=== PATIENT | male | born 1955 | race Two or more races ===

== ENCOUNTER 2016-05-23 18:04 | Inpatient (IN) | payer MEDICAID ==
[~2016-05-23] VITALS: Ht 170.2 cm; Wt 84.0 kg
[2016-05-23 18:50] LABS: Basophils # (auto) 0 uL; Basophils % (auto) 0.1 % (0.0-2.0); DEFINITIVE VIEW TRANSMISSION; Eosinophils # (auto) 0 uL; Eosinophils % (auto) 0.2 % (0.0-7.0); Hematocrit 35.3 % (41.0-53.0); Lymphocytes # (auto) 4.9 uL; Lymphocytes % (auto) 28.9 % (10.0-50.0); Mean Corpuscular Hemoglobin 20.8 pg (28.0-32.0); Mean Corpuscular Hgb Conc. 31.1 g/dL (32.0-36.0); Mean Corpuscular Volume 66.7 fL (80.0-100.0); Mean Platelet Volume 6.9 fL (7.4-10.4); Monocytes # (auto) 1.4 uL; Monocytes % (auto) 8.1 % (0.0-12.0); Neutrophils # (auto) 10.7 uL; Neutrophils % (auto) 62.7 % (37.0-80.0); Platelet Count (auto) 369 10^3/uL (140-450); Red Cell Distribution Width 19.5 % (11.6-16.0); White Blood Cell 17.1 10^3/uL (4.4-10.8)
[2016-05-23 19:13] LABS: Albumin 3.5 g/dL (3.4-5.0); BUN/Creatinine Ratio 17.5; Calcium 9.1 mg/dL (8.5-10.1); Magnesium 1.8 mg/dL (1.6-2.6); Potassium 4.1 mmol/L (3.5-5.1); Total Protein 8.1 g/dL (6.4-8.2)
[2016-05-23 19:55] LABS: Anisocytosis Slight; Giant Platelets Few; Hypochromia Moderate; Microcytosis Marked; Platelet Estimate Adequate
[2016-05-23] MEDS ORDERED: MORPHINE SULFATE 4 MG/ML SYRG IV ONE (20:45)
[2016-05-23] MEDS ORDERED: ONDANSETRON HCL 4 MG/2 ML VIAL IV ONE (20:45)
[2016-05-24] MEDS ORDERED: MORPHINE SULFATE 4 MG/ML SYRG IM ONE (01:45)
[2016-05-24] MEDS ORDERED: ONDANSETRON HCL 4 MG/2 ML VIAL IM ONE (01:45)
[2016-05-24] MEDS ORDERED: cefTRIAXone 1GM/50ML D5W 50 ML IV ONE (01:45)
[2016-05-24 02:02] LABS: Urine Bilirubin Negative (Negative); Urine Color Red (Yellow); Urine Glucose Normal (Normal); Urine Ketone Negative (Negative); Urine RBC 258 /hpf (0 - 3); Urine Urobilinogen Normal (Negative); Urine WBC Clumps PRESENT /hpf (None Seen)
[2016-05-24 02:11] LABS: Urine Blood 3+ /uL (Negative); Urine Nitrite POSITIVE (Negative)
[2016-05-24] MEDS ORDERED: ACETAMINOPHEN 325 MG TAB PO ONE (02:30)
[2016-05-24] MEDS: SODIUM CHLORIDE 0.9% 1,000 ML IV SCH ×2 (04:51→22:15)
[2016-05-24] MEDS ORDERED: TAMSULOSIN HYDROCHLORIDE 0.4 MG CAP PO ONE (05:00)
[2016-05-24] MEDS ORDERED: ONDANSETRON HCL 4 MG/2 ML VIAL IV PRN (05:00)
[2016-05-24] MEDS ORDERED: ACETAMINOPHEN 325 MG TAB PO PRN (05:00)
[2016-05-24 09:34] VITALS: BP 108/66
[2016-05-24] MEDS: FERROUS SULFATE 325 MG TAB PO SCH (10:01)
[2016-05-24] MEDS: FAMOTIDINE 20 MG TAB PO SCH ×2 (10:01→22:15)
[2016-05-24] MEDS: ENOXAPARIN SOD 40 MG/0.4 ML SYRINGE SC SCH (10:02)
[2016-05-24] MEDS: HYDROcodone-ACET 5/325MG TAB PO PRN ×3 (10:02→22:16)
[2016-05-24] MEDS ORDERED: PIRO-23 PO (11:05)
[2016-05-24] MEDS ORDERED: TAMS0.4C36 PO (11:05)
[2016-05-24 13:00] VITALS: BP 93/54
[2016-05-24 16:54] VITALS: BP 92/49
[2016-05-24] MEDS: TAMSULOSIN HYDROCHLORIDE 0.4 MG CAP PO SCH (18:01)
[2016-05-24 21:45] VITALS: BP 100/62
[2016-05-25] MEDS: cefTRIAXone 1GM/50ML D5W 50 ML IV SCH (01:44)
[2016-05-25 04:42] VITALS: BP 97/57
[2016-05-25] MEDS: HYDROcodone-ACET 5/325MG TAB PO PRN ×4 (06:26→21:54)
[2016-05-25 07:03] LABS: Basophils # (auto) 0 uL; Basophils % (auto) 0.4 % (0.0-2.0); DEFINITIVE VIEW TRANSMISSION; Eosinophils # (auto) 0.4 uL; Eosinophils % (auto) 4.7 % (0.0-7.0); Hemoglobin 10.6 g/dL (13.5-17.5); Lymphocytes # (auto) 4.1 uL; Lymphocytes % (auto) 51.2 % (10.0-50.0); Mean Corpuscular Hemoglobin 20.4 pg (28.0-32.0); Mean Corpuscular Hgb Conc. 30.3 g/dL (32.0-36.0); Mean Corpuscular Volume 67.4 fL (80.0-100.0); Mean Platelet Volume 7.8 fL (7.4-10.4); Monocytes # (auto) 0.9 uL; Monocytes % (auto) 10.7 % (0.0-12.0); Neutrophils # (auto) 2.7 uL; Platelet Count (auto) 344 10^3/uL (140-450); Red Cell Distribution Width 19.5 % (11.6-16.0)
[2016-05-25 07:20] LABS: Albumin 3.2 g/dL (3.4-5.0); BUN/Creatinine Ratio 20.8; Calcium 8.2 mg/dL (8.5-10.1); Potassium 3.9 mmol/L (3.5-5.1)
[2016-05-25 07:23] LABS: Bilirubin, Total 0.3 mg/dL (0.2-1.0); Total Protein 7.7 g/dL (6.4-8.2)
[2016-05-25 07:41] LABS: Anisocytosis Slight; Platelet Estimate Adequate
[2016-05-25 07:42] LABS: Hypochromia Moderate; Microcytosis Marked
[2016-05-25 09:00] VITALS: BP 139/64
[2016-05-25] MEDS: ENOXAPARIN SOD 40 MG/0.4 ML SYRINGE SC SCH (10:41)
[2016-05-25] MEDS: FERROUS SULFATE 325 MG TAB PO SCH (10:41)
[2016-05-25] MEDS: FAMOTIDINE 20 MG TAB PO SCH ×2 (10:41→21:49)
[2016-05-25] MEDS: AMPICILLIN SOD 2GM INJ 2 GM in SODIUM CHL 0.9% 100 ML IV SCH ×3 (12:31→23:33)
[2016-05-25 13:00] VITALS: BP 104/72
[2016-05-25 16:00] VITALS: BP 106/65
[2016-05-25] MEDS: TAMSULOSIN HYDROCHLORIDE 0.4 MG CAP PO SCH (17:49)
[2016-05-25] MEDS: SODIUM CHLORIDE 0.9% 1,000 ML IV SCH (17:50)
[2016-05-25 22:00] VITALS: BP 112/74
[2016-05-26] MEDS: cefTRIAXone 1GM/50ML D5W 50 ML IV SCH (02:01)
[2016-05-26] MEDS: HYDROcodone-ACET 5/325MG TAB PO PRN ×3 (02:32→20:18)
[2016-05-26 05:47] VITALS: BP 113/75
[2016-05-26] MEDS: AMPICILLIN SOD 2GM INJ 2 GM in SODIUM CHL 0.9% 100 ML IV SCH (05:50)
[2016-05-26] MEDS: SODIUM CHLORIDE 0.9% 1,000 ML IV SCH ×2 (05:50→14:29)
[2016-05-26 06:53] LABS: Basophils # (auto) 0 uL; Basophils % (auto) 0.6 % (0.0-2.0); DEFINITIVE VIEW TRANSMISSION; Eosinophils # (auto) 0.4 uL; Eosinophils % (auto) 6.9 % (0.0-7.0); Hematocrit 32.2 % (41.0-53.0); Hemoglobin 9.8 g/dL (13.5-17.5); Mean Corpuscular Hemoglobin 20.6 pg (28.0-32.0); Mean Corpuscular Hgb Conc. 30.4 g/dL (32.0-36.0); Mean Corpuscular Volume 67.8 fL (80.0-100.0); Mean Platelet Volume 7.3 fL (7.4-10.4); Monocytes # (auto) 0.6 uL; Monocytes % (auto) 9.2 % (0.0-12.0); Neutrophils # (auto) 1.3 uL; Neutrophils % (auto) 20.7 % (37.0-80.0); Platelet Count (auto) 346 10^3/uL (140-450); Red Cell Distribution Width 19.6 % (11.6-16.0); White Blood Cell 6.5 10^3/uL (4.4-10.8)
[2016-05-26 07:12] LABS: Albumin 2.7 g/dL (3.4-5.0); BUN/Creatinine Ratio 17.4; Bilirubin, Total 0.2 mg/dL (0.2-1.0); Calcium 8.1 mg/dL (8.5-10.1); Total Protein 6.6 g/dL (6.4-8.2)
[2016-05-26 07:26] LABS: Lymphocytes % (auto) 62.6 % (10.0-50.0)
[2016-05-26] MEDS: ENOXAPARIN SOD 40 MG/0.4 ML SYRINGE SC SCH (09:03)
[2016-05-26] MEDS: FERROUS SULFATE 325 MG TAB PO SCH (09:04)
[2016-05-26] MEDS: FAMOTIDINE 20 MG TAB PO SCH ×2 (09:04→22:03)
[2016-05-26 09:33] VITALS: BP 113/76
[2016-05-26 11:24] LABS: Microcytosis Marked
[2016-05-26 11:25] LABS: Anisocytosis Moderate; Hypochromia Moderate; Ovalocytes FEW; Platelet Estimate Adequate
[2016-05-26] MEDS ORDERED: LEVOFLOXACIN 500 MG TAB PO ONE (11:30)
[2016-05-26 13:39] VITALS: BP 113/74
[2016-05-26 17:20] VITALS: BP 104/72
[2016-05-26] MEDS: TAMSULOSIN HYDROCHLORIDE 0.4 MG CAP PO SCH (18:16)
[2016-05-26 22:00] VITALS: BP 121/84
[2016-05-27] MEDS: HYDROcodone-ACET 5/325MG TAB PO PRN ×2 (04:57→11:25)
[2016-05-27 05:49] VITALS: BP 108/68
[2016-05-27 09:00] VITALS: BP 101/62
[2016-05-27] MEDS: FAMOTIDINE 20 MG TAB PO SCH (10:00)
[2016-05-27] MEDS: ENOXAPARIN SOD 40 MG/0.4 ML SYRINGE SC SCH (10:00)
[2016-05-27] MEDS: FERROUS SULFATE 325 MG TAB PO SCH (10:00)
[2016-05-27] MEDS ORDERED: LEVOFLOXACIN 500 MG TAB PO SCH (10:00)
== END 2016-05-27 14:00 | disposition home health service (06) | DRG 720 ==
LOC: ER 18:04 → OVERFLOW 18:05 → CENTRAL 05-24 05:05
PROVIDERS: ADMIT Internal Medicine; ATTEND Internal Medicine
DX: A41.9 Sepsis, unspecified organism (principal); E44.0 Moderate protein-calorie malnutrition; N39.0 Urinary tract infection, site not specified; N47.2 Paraphimosis; N40.1 Benign prostatic hyperplasia with lower urinary tract symptoms; R33.8 Other retention of urine; D50.9 Iron deficiency anemia, unspecified; B95.2 Enterococcus as the cause of diseases classified elsewhere; B96.20 Unspecified Escherichia coli [E. coli] as the cause of diseases classified elsewhere; Z98.890 Other specified postprocedural states; Z68.29 Body mass index [BMI] 29.0-29.9, adult
CPT/HCPCS: 36415; 51702; 76775; 80053; 81001; 83690; 83735; 84484; 85025; 87086; 87088; 87186; 93005; 96365; 96372; 96375; J0696; J2405

== ENCOUNTER 2016-06-01 08:52 | Inpatient (IN) | payer MEDICAID ==
[~2016-06-01] VITALS: Ht 172.7 cm; Wt 82.9 kg
[~2016-06-01 08:52] MED LIST: PIRO-23 PO; TAMS0.4C36 PO
[2016-06-01] MEDS ORDERED: SODIUM CHLORIDE 0.9% 1,000 ML IVB ONE (13:03)
[2016-06-01] MEDS ORDERED: MORPHINE SULF INJ 2 MG/ML SYRINGE 1ML IV ONE (13:15)
[2016-06-01] MEDS ORDERED: ONDANSETRON HCL 4 MG/2 ML VIAL IV ONE (13:15)
[2016-06-01 13:30] LABS: DEFINITIVE VIEW TRANSMISSION; Hematocrit 37.1 % (41.0-53.0); Hemoglobin 11.3 g/dL (13.5-17.5); Mean Corpuscular Hemoglobin 20.7 pg (28.0-32.0); Mean Corpuscular Hgb Conc. 30.4 g/dL (32.0-36.0); Mean Platelet Volume 7.6 fL (7.4-10.4); Platelet Count (auto) 342 10^3/uL (140-450); Red Cell Distribution Width 17.2 % (11.6-16.0)
[2016-06-01 13:39] LABS: INR 1.14 (0.9-1.15); Partial Thromboplastin Time 24.3 sec (22.64-33.71); Prothrombin Time 11.7 sec (9.37-12.3)
[2016-06-01 13:41] LABS: Metamyelocytes % 0; Myelocytes % 0; Promyelocytes % 0; Reactive Lymphocytes 0
[2016-06-01 13:51] LABS: Albumin 3.3 g/dL (3.4-5.0); BUN/Creatinine Ratio 25.6; Bilirubin, Total 0.4 mg/dL (0.2-1.0); Calcium 8.6 mg/dL (8.5-10.1); Magnesium 2.1 mg/dL (1.6-2.6); Potassium 4.2 mmol/L (3.5-5.1); Total Protein 7.5 g/dL (6.4-8.2)
[2016-06-01 14:00] LABS: Urine Bilirubin Negative (Negative); Urine Blood 3+ /uL (Negative); Urine Color Yellow (Yellow); Urine Glucose Normal (Normal); Urine Ketone Negative (Negative); Urine Nitrite Negative (Negative); Urine RBC 428 /hpf (0 - 3); Urine Urobilinogen Normal (Negative); Urine pH 5.5 (5.0-8.0)
[2016-06-01 14:24] LABS: Anisocytosis Slight; Hypochromia Slight; Microcytosis Slight; Ovalocytes FEW; Platelet Estimate Adequate
[2016-06-01] MEDS ORDERED: PIPERACILLIN-TAZOB 3.375GM 100 ML IV ONE (16:15)
[2016-06-01] MEDS ORDERED: HYDROcodone-ACET 5/325MG TAB PO PRN (16:15)
[2016-06-01] MEDS ORDERED: MORPHINE SULF INJ 2 MG/ML SYRINGE 1ML IV PRN (16:15)
[2016-06-01] MEDS ORDERED: TEMAZEPAM 15 MG CAP PO PRN (16:15)
[2016-06-01] MEDS ORDERED: NITROGLYCERIN 0.4 MG SL TAB SL PRN (16:15)
[2016-06-01] MEDS ORDERED: ACETAMINOPHEN 500 MG TAB PO PRN (16:15)
[2016-06-01] MEDS: SODIUM CHLORIDE 0.9% 1,000 ML IV SCH (16:23)
[2016-06-01] MEDS: MORPHINE SULF INJ 2 MG/ML SYRINGE 1ML IV PRN ×2 (17:29→20:50)
[2016-06-01 22:13] VITALS: BP 127/85
[2016-06-01] MEDS: PIPERACILLIN-TAZOB 3.375GM 100 ML IV SCH (22:20)
[2016-06-02] MEDS: MORPHINE SULF INJ 2 MG/ML SYRINGE 1ML IV PRN ×5 (01:24→20:42)
[2016-06-02] MEDS: PIPERACILLIN-TAZOB 3.375GM 100 ML IV SCH ×4 (04:15→22:11)
[2016-06-02 05:00] VITALS: BP 100/56
[2016-06-02] MEDS: SODIUM CHLORIDE 0.9% 1,000 ML IV SCH ×3 (05:07→22:11)
[2016-06-02 06:26] LABS: DEFINITIVE VIEW TRANSMISSION; Hematocrit 32.3 % (41.0-53.0); Hemoglobin 9.9 g/dL (13.5-17.5); Mean Corpuscular Hemoglobin 20.5 pg (28.0-32.0); Mean Corpuscular Hgb Conc. 30.6 g/dL (32.0-36.0); Mean Corpuscular Volume 67.2 fL (80.0-100.0); Mean Platelet Volume 7.4 fL (7.4-10.4); Platelet Count (auto) 296 10^3/uL (140-450); Red Cell Distribution Width 18.8 % (11.6-16.0); White Blood Cell 6.9 10^3/uL (4.4-10.8)
[2016-06-02 06:41] LABS: Metamyelocytes % 0; Myelocytes % 0; Promyelocytes % 0; Reactive Lymphocytes 0
[2016-06-02 07:33] LABS: Platelet Clumps FEW; Platelet Estimate Adequate
[2016-06-02 07:34] LABS: Hypochromia Slight; Microcytosis Slight
[2016-06-02 08:05] VITALS: BP 102/63
[2016-06-02] MEDS ORDERED: MIDAZOLAM HCL 1MG/1ML-2 ML VIAL ONE (11:11)
[2016-06-02] MEDS ORDERED: fentaNYL CITRATE 100 MCG/2 ML VL ONE (11:11)
[2016-06-02 12:00] VITALS: BP 99/58
[2016-06-02 16:16] VITALS: BP 110/66
[2016-06-02 22:00] VITALS: BP 106/67
[2016-06-03] MEDS: MORPHINE SULF INJ 2 MG/ML SYRINGE 1ML IV PRN ×5 (02:02→20:19)
[2016-06-03] MEDS: PIPERACILLIN-TAZOB 3.375GM 100 ML IV SCH ×4 (04:03→22:29)
[2016-06-03] MEDS: PROMETHAZINE HCL 25 MG/ML 1ML IV PRN (04:03)
[2016-06-03 05:03] VITALS: BP 94/66
[2016-06-03 08:55] VITALS: BP 104/63
[2016-06-03 13:00] VITALS: BP 106/67
[2016-06-03] MEDS: SODIUM CHLORIDE 0.9% 1,000 ML IV SCH (14:25)
[2016-06-03 16:40] VITALS: BP 111/69
[2016-06-03 22:00] VITALS: BP 112/71
[2016-06-03 23:00] VITALS: BP 102/62
[2016-06-04] MEDS: MORPHINE SULF INJ 2 MG/ML SYRINGE 1ML IV PRN ×5 (01:08→20:26)
[2016-06-04] MEDS: PIPERACILLIN-TAZOB 3.375GM 100 ML IV SCH ×2 (04:05→10:22)
[2016-06-04 05:00] VITALS: BP 107/67
[2016-06-04 09:00] VITALS: BP 107/56
[2016-06-04 12:47] VITALS: BP 89/58
[2016-06-04] MEDS: LEVOFLOXACIN 250 MG TAB PO SCH (14:03)
[2016-06-04 17:19] VITALS: BP 116/79
[2016-06-04 21:37] VITALS: BP 121/72
[2016-06-04] MEDS: LORazepam 0.5 MG TAB PO PRN (22:44)
[2016-06-05] MEDS: MORPHINE SULF INJ 2 MG/ML SYRINGE 1ML IV PRN ×6 (00:50→22:41)
[2016-06-05 05:25] VITALS: BP 110/69
[2016-06-05 08:00] VITALS: BP 110/65
[2016-06-05] MEDS: LEVOFLOXACIN 250 MG TAB PO SCH (09:50)
[2016-06-05 12:00] VITALS: BP 117/74
[2016-06-05 16:00] VITALS: BP 115/72
[2016-06-05] MEDS: PROMETHAZINE HCL 25 MG/ML 1ML IV PRN (16:13)
[2016-06-05 22:00] VITALS: BP 101/66
[2016-06-06] MEDS: LORazepam 0.5 MG TAB PO PRN (00:23)
[2016-06-06] MEDS: MORPHINE SULF INJ 2 MG/ML SYRINGE 1ML IV PRN ×3 (02:41→11:11)
[2016-06-06 05:00] VITALS: BP 109/76
[2016-06-06 08:00] VITALS: BP 103/74
[2016-06-06] MEDS: LEVOFLOXACIN 250 MG TAB PO SCH (09:59)
[2016-06-06 10:58] VITALS: BP 103/74
[2016-06-06 12:00] VITALS: BP 122/73
[2016-06-07 10:07] LABS: Prostate Specific Antigen 351.2 ng/mL (0.0-4.0)
[2016-06-07 11:06] LABS: PSA Free >50.00 ng/mL
== END 2016-06-06 12:30 | disposition home or self-care (01) | DRG 952 ==
LOC: EDUNIT# 08:52 → ER 08:55 → TELE 08:56 → TELE-WESTW 18:48 → WEST WING 06-02 14:55
PROVIDERS: ADMIT Internal Medicine; ATTEND Internal Medicine
PROC: 07BD3ZX Excision of Aortic Lymphatic, Percutaneous Approach, Diagnostic (ICD-10-PCS; principal; 2016-06-02)
DX: C61 Malignant neoplasm of prostate (principal); R00.1 Bradycardia, unspecified; R31.9 Hematuria, unspecified; R33.8 Other retention of urine; N40.1 Benign prostatic hyperplasia with lower urinary tract symptoms; D50.8 Other iron deficiency anemias; R59.0 Localized enlarged lymph nodes; Z98.890 Other specified postprocedural states; Z87.891 Personal history of nicotine dependence; Z87.440 Personal history of urinary (tract) infections
CPT/HCPCS: 10022; 36415; 71010; 74176; 77012; 80053; 81001; 83735; 84154; 85007; 85027; 85610; 85652; 85730; 86141; 87081; 87086; 94761; 96361; 96365; 96375; J2250; J2405; J2543

== ENCOUNTER 2016-06-15 00:12 | Emergency (ER) | payer MEDICAID ==
[~2016-06-15] VITALS: Ht 172.7 cm; Wt 77.1 kg
[2016-06-15 01:19] LABS: Basophils # (auto) 0 uL; Basophils % (auto) 0.4 % (0.0-2.0); DEFINITIVE VIEW TRANSMISSION; Eosinophils # (auto) 0.4 uL; Eosinophils % (auto) 6.1 % (0.0-7.0); Hematocrit 32.7 % (41.0-53.0); Hemoglobin 10.3 g/dL (13.5-17.5); Lymphocytes # (auto) 3.5 uL; Lymphocytes % (auto) 51.2 % (10.0-50.0); Mean Corpuscular Hgb Conc. 31.4 g/dL (32.0-36.0); Mean Corpuscular Volume 66.9 fL (80.0-100.0); Mean Platelet Volume 7.5 fL (7.4-10.4); Monocytes # (auto) 0.6 uL; Monocytes % (auto) 9.4 % (0.0-12.0); Neutrophils # (auto) 2.2 uL; Neutrophils % (auto) 32.9 % (37.0-80.0); Platelet Count (auto) 331 10^3/uL (140-450); Red Cell Distribution Width 18.2 % (11.6-16.0); White Blood Cell 6.8 10^3/uL (4.4-10.8)
[2016-06-15 01:32] LABS: BUN/Creatinine Ratio 9.8; Calcium 7.9 mg/dL (8.5-10.1); Potassium 3.7 mmol/L (3.5-5.1)
[2016-06-15 01:34] LABS: Bilirubin, Total 0.4 mg/dL (0.2-1.0); Total Protein 7.4 g/dL (6.4-8.2)
[2016-06-15 06:20] LABS: Urine Bilirubin Negative (Negative); Urine Blood Negative /uL (Negative); Urine Color Yellow (Yellow); Urine Glucose Normal (Normal); Urine Ketone Negative (Negative); Urine Nitrite Negative (Negative); Urine RBC <1 /hpf (0 - 3); Urine Urobilinogen Normal (Negative); Urine pH 6.5 (5.0-8.0)
[2016-06-15] MEDS ORDERED: NALBUPHINE HCL 10 MG/1ml INJECTION IV ONE (08:15)
[2016-06-15] MEDS ORDERED: PROMETHAZINE HCL 25 MG/ML 1ML IV ONE (08:15)
[2016-06-15] MEDS ORDERED: LIDOCAINE 2% JELLY UROJET 10 ML TOP ONE (11:59)
[2016-06-15] MEDS ORDERED: LIDOCAINE 2% JELLY 11ml (GLYDO) UR ONE (12:15)
[2016-06-15] MEDS ORDERED: LIDOCAINE HCL 2% TOP JELLY 5ML TOP ONE (12:15)
[2016-06-15 14:15] VITALS: BP 116/84
== END 2016-06-15 15:04 | disposition home or self-care (01) ==
LOC: EDBD 00:12 → ER 00:18
DX: N40.1 Benign prostatic hyperplasia with lower urinary tract symptoms (principal); M47.812 Spondylosis without myelopathy or radiculopathy, cervical region; N50.82 Scrotal pain; D50.9 Iron deficiency anemia, unspecified; I10 Essential (primary) hypertension; Z96.0 Presence of urogenital implants; E44.0 Moderate protein-calorie malnutrition; Z68.25 Body mass index [BMI] 25.0-25.9, adult
CPT/HCPCS: 36415; 51702; 71020; 72125; 80053; 81001; 85025; 85049; 93005; 96374; 96375; 99285; J2300; J2550; J7030

== ENCOUNTER 2016-11-26 10:39 | Inpatient (IN) | payer MEDICAID ==
[~2016-11-26] VITALS: Ht 172.7 cm; Wt 78.0 kg
[2016-11-26] MEDS ORDERED: SODIUM CHLORIDE 0.9% 1,000 ML IVB ONE (12:41)
[2016-11-26 12:59] LABS: Basophils # (auto) 0 uL; Basophils % (auto) 0.2 % (0.0-2.0); CONDITION Y; DEFINITIVE SEE PRINTOUT; Eosinophils # (auto) 0.2 uL; Eosinophils % (auto) 1.7 % (0.0-7.0); Hematocrit 35.4 % (41.0-53.0); Hemoglobin 11.3 g/dL (13.5-17.5); Lymphocytes # (auto) 3.1 uL; Lymphocytes % (auto) 32.7 % (10.0-50.0); Mean Corpuscular Hemoglobin 22.7 pg (28.0-32.0); Mean Corpuscular Hgb Conc. 32.1 g/dL (32.0-36.0); Mean Corpuscular Volume 70.7 fL (80.0-100.0); Mean Platelet Volume 6.7 fL (7.4-10.4); Monocytes # (auto) 0.9 uL; Neutrophils # (auto) 5.4 uL; Neutrophils % (auto) 56.4 % (37.0-80.0); Platelet Count (auto) 361 10^3/uL (140-450); Red Cell Distribution Width 17.7 % (11.6-16.0); White Blood Cell 9.5 10^3/uL (4.4-10.8)
[2016-11-26] MEDS ORDERED: cefTRIAXone 1GM/50ML D5W 50 ML IV ONE (13:15)
[2016-11-26] MEDS ORDERED: MORPHINE SULF INJ 2 MG/ML SYRINGE 1ML IV ONE (13:15)
[2016-11-26] MEDS ORDERED: ONDANSETRON HCL 4 MG/2 ML VIAL IV ONE (13:15)
[2016-11-26 13:22] LABS: Albumin 3.6 g/dL (3.4-5.0); BUN/Creatinine Ratio 20.4; Bilirubin, Total 0.6 mg/dL (0.2-1.0); Potassium 3.9 mmol/L (3.5-5.1)
[2016-11-26] MEDS ORDERED: TEMAZEPAM 15 MG CAP PO PRN (14:45)
[2016-11-26] MEDS ORDERED: ACETAMINOPHEN 500 MG TAB PO PRN (14:45)
[2016-11-26] MEDS: FAMOTIDINE 20 MG TAB PO SCH ×2 (15:37→21:57)
[2016-11-26] MEDS: SODIUM CHLORIDE 0.9% 1,000 ML IV SCH ×2 (15:37→21:58)
[2016-11-26] MEDS: HYDROcodone-ACET 5/325MG TAB PO PRN ×2 (15:44→23:24)
[2016-11-26 20:00] VITALS: BP 107/70
[2016-11-26] MEDS: PROMETHAZINE HCL 25 MG/ML 1ML IV PRN ×2 (20:01→23:58)
[2016-11-26] MEDS: MORPHINE SULF INJ 2 MG/ML SYRINGE 1ML IV PRN ×2 (20:01→23:58)
[2016-11-26 21:42] VITALS: BP 107/70
[2016-11-27] MEDS: MORPHINE SULF INJ 2 MG/ML SYRINGE 1ML IV PRN ×8 (04:09→23:42)
[2016-11-27] MEDS: PROMETHAZINE HCL 25 MG/ML 1ML IV PRN ×2 (04:10→17:13)
[2016-11-27 04:31] VITALS: BP 132/75
[2016-11-27] MEDS: HYDROcodone-ACET 5/325MG TAB PO PRN ×2 (05:13→18:36)
[2016-11-27] MEDS ORDERED: MORPHINE SULF INJ 2 MG/ML SYRINGE 1ML IV ONE (05:15)
[2016-11-27 06:07] LABS: Basophils # (auto) 0 uL; Basophils % (auto) 0.4 % (0.0-2.0); CONDITION Y; DEFINITIVE SEE PRINTOUT; Eosinophils # (auto) 0.2 uL; Eosinophils % (auto) 3.5 % (0.0-7.0); Hematocrit 30.8 % (41.0-53.0); Hemoglobin 9.8 g/dL (13.5-17.5); Lymphocytes # (auto) 1.8 uL; Lymphocytes % (auto) 31.5 % (10.0-50.0); Mean Corpuscular Hemoglobin 22.5 pg (28.0-32.0); Mean Corpuscular Hgb Conc. 31.8 g/dL (32.0-36.0); Mean Corpuscular Volume 70.9 fL (80.0-100.0); Mean Platelet Volume 6.9 fL (7.4-10.4); Monocytes # (auto) 0.6 uL; Monocytes % (auto) 11.2 % (0.0-12.0); Neutrophils % (auto) 53.4 % (37.0-80.0); Platelet Count (auto) 302 10^3/uL (140-450); Red Cell Distribution Width 17.4 % (11.6-16.0); White Blood Cell 5.6 10^3/uL (4.4-10.8)
[2016-11-27 08:00] VITALS: BP 113/66
[2016-11-27] MEDS: FAMOTIDINE 20 MG TAB PO SCH ×2 (08:22→21:29)
[2016-11-27] MEDS: cefTRIAXone 1GM/50ML D5W 50 ML IV SCH (08:23)
[2016-11-27 09:21] VITALS: BP 113/66
[2016-11-27] MEDS ORDERED: PHENAZOPYRIDINE HCL 100 MG TAB PO ONE (11:15)
[2016-11-27] MEDS: SODIUM CHLORIDE 0.9% 1,000 ML IV SCH ×2 (12:04→21:39)
[2016-11-27 12:53] VITALS: BP 115/70
[2016-11-27 16:38] VITALS: BP 107/68
[2016-11-27] MEDS: PHENAZOPYRIDINE HCL 100 MG TAB PO SCH (21:29)
[2016-11-27 21:33] VITALS: BP 115/63
[2016-11-28] MEDS: HYDROcodone-ACET 5/325MG TAB PO PRN ×2 (01:16→08:06)
[2016-11-28] MEDS: LORazepam 0.5 MG TAB PO PRN (01:27)
[2016-11-28] MEDS: MORPHINE SULF INJ 2 MG/ML SYRINGE 1ML IV PRN ×10 (01:58→23:10)
[2016-11-28 04:33] VITALS: BP 102/86
[2016-11-28 07:16] LABS: CONDITION Y; DEFINITIVE SEE PRINTOUT; Hematocrit 32.8 % (41.0-53.0); Hemoglobin 10.4 g/dL (13.5-17.5); Mean Corpuscular Hemoglobin 22.7 pg (28.0-32.0); Mean Corpuscular Hgb Conc. 31.7 g/dL (32.0-36.0); Mean Corpuscular Volume 71.6 fL (80.0-100.0); Mean Platelet Volume 7.4 fL (7.4-10.4); Platelet Count (auto) 349 10^3/uL (140-450); White Blood Cell 10.2 10^3/uL (4.4-10.8)
[2016-11-28 07:18] LABS: Myelocytes % 0; Promyelocytes % 0; Reactive Lymphocytes 0
[2016-11-28] MEDS: SODIUM CHLORIDE 0.9% 1,000 ML IV SCH ×2 (07:34→16:43)
[2016-11-28 07:43] LABS: Albumin 3.2 g/dL (3.4-5.0); BUN/Creatinine Ratio 11.8; Bilirubin, Total 0.4 mg/dL (0.2-1.0); Potassium 3.7 mmol/L (3.5-5.1); Total Protein 7.7 g/dL (6.4-8.2)
[2016-11-28 08:01] LABS: Anisocytosis Slight; Hypersegmented Neutrophils Present; Metamyelocytes % 1; Platelet Estimate Adequate
[2016-11-28 08:02] LABS: Microcytosis Moderate
[2016-11-28] MEDS ORDERED: LEUPROLIDE 7.5 MG SC SCH (08:45)
[2016-11-28 09:00] VITALS: BP 126/72
[2016-11-28] MEDS: PHENAZOPYRIDINE HCL 100 MG TAB PO SCH ×2 (10:24→22:16)
[2016-11-28] MEDS: MILK OF MAGNESIA 30ML SUSP PO SCH (10:24)
[2016-11-28] MEDS: cefTRIAXone 1GM/50ML D5W 50 ML IV SCH (10:24)
[2016-11-28] MEDS: FAMOTIDINE 20 MG TAB PO SCH ×2 (10:24→22:16)
[2016-11-28] MEDS: BICALUTAMIDE 50 MG TAB PO SCH (10:25)
[2016-11-28 12:08] LABS: BUN/Creatinine Ratio 13.2; Bilirubin, Total 0.3 mg/dL (0.2-1.0); Calcium 8.7 mg/dL (8.5-10.1); Potassium 3.8 mmol/L (3.5-5.1); Total Protein 7.1 g/dL (6.4-8.2)
[2016-11-28 13:00] VITALS: BP 131/68
[2016-11-28] MEDS ORDERED: IOHEXOL 300 MG/ML 100ML BOTTLE IJ ONE (13:22)
[2016-11-28] MEDS: MORPHINE SULF 30 mg ER tab PO SCH ×2 (14:13→22:16)
[2016-11-28 17:00] VITALS: BP 103/66
[2016-11-28 22:00] VITALS: BP 107/70
[2016-11-29] MEDS: HYDROcodone-ACET 5/325MG TAB PO PRN ×2 (00:53→12:15)
[2016-11-29] MEDS: LORazepam 0.5 MG TAB PO PRN (00:53)
[2016-11-29] MEDS: MORPHINE SULF INJ 2 MG/ML SYRINGE 1ML IV PRN ×9 (02:05→20:51)
[2016-11-29] MEDS: SODIUM CHLORIDE 0.9% 1,000 ML IV SCH ×3 (02:41→22:41)
[2016-11-29 05:00] VITALS: BP 106/65
[2016-11-29] MEDS: MORPHINE SULF 30 mg ER tab PO SCH ×3 (06:06→21:52)
[2016-11-29 08:56] VITALS: BP 105/73
[2016-11-29] MEDS: cefTRIAXone 1GM/50ML D5W 50 ML IV SCH (09:06)
[2016-11-29] MEDS: MILK OF MAGNESIA 30ML SUSP PO SCH (10:01)
[2016-11-29] MEDS: FAMOTIDINE 20 MG TAB PO SCH ×2 (10:01→21:51)
[2016-11-29] MEDS: PHENAZOPYRIDINE HCL 100 MG TAB PO SCH ×2 (10:01→21:51)
[2016-11-29] MEDS: BICALUTAMIDE 50 MG TAB PO SCH (10:01)
[2016-11-29] MEDS: DOCUSATE SOD 100 MG CAP PO PRN ×2 (10:11→18:32)
[2016-11-29 10:12] LABS: PSA Free >50.00 ng/mL; Prostate Specific Antigen 546.8 ng/mL (0.0-4.0)
[2016-11-29] MEDS ORDERED: LEUPROLIDE 7.5 MG SC ONE ×2 (11:00→13:00)
[2016-11-29 13:00] VITALS: BP 135/64
[2016-11-29 17:30] VITALS: BP 108/76
[2016-11-29 22:00] VITALS: BP 111/65
[2016-11-30] MEDS: MORPHINE SULF INJ 2 MG/ML SYRINGE 1ML IV PRN ×8 (01:59→17:47)
[2016-11-30] MEDS: LORazepam 0.5 MG TAB PO PRN (02:04)
[2016-11-30 05:08] VITALS: BP 119/72
[2016-11-30] MEDS: MORPHINE SULF 30 mg ER tab PO SCH ×2 (05:59→14:28)
[2016-11-30 07:23] LABS: Basophils # (auto) 0 uL; Basophils % (auto) 0.5 % (0.0-2.0); CONDITION Y; DEFINITIVE SEE PRINTOUT; Eosinophils # (auto) 0.4 uL; Eosinophils % (auto) 5.2 % (0.0-7.0); Hematocrit 30.9 % (41.0-53.0); Hemoglobin 9.9 g/dL (13.5-17.5); Lymphocytes # (auto) 3.9 uL; Lymphocytes % (auto) 50.1 % (10.0-50.0); Mean Corpuscular Hemoglobin 22.5 pg (28.0-32.0); Mean Corpuscular Hgb Conc. 31.9 g/dL (32.0-36.0); Mean Corpuscular Volume 70.6 fL (80.0-100.0); Mean Platelet Volume 7.2 fL (7.4-10.4); Monocytes # (auto) 0.9 uL; Monocytes % (auto) 12.1 % (0.0-12.0); Neutrophils # (auto) 2.5 uL; Neutrophils % (auto) 32.1 % (37.0-80.0); Platelet Count (auto) 340 10^3/uL (140-450); Red Cell Distribution Width 17.8 % (11.6-16.0); White Blood Cell 7.8 10^3/uL (4.4-10.8)
[2016-11-30 08:09] LABS: Albumin 3.1 g/dL (3.4-5.0); BUN/Creatinine Ratio 17.5; Bilirubin, Total 0.4 mg/dL (0.2-1.0); Calcium 8.7 mg/dL (8.5-10.1); Potassium 3.6 mmol/L (3.5-5.1); Total Protein 7.2 g/dL (6.4-8.2)
[2016-11-30 08:29] VITALS: BP_SYST 107; BP_SYST 152; BP_DIAS 71; BP_DIAS 78
[2016-11-30] MEDS: SODIUM CHLORIDE 0.9% 1,000 ML IV SCH (08:41)
[2016-11-30] MEDS: DOCUSATE SOD 100 MG CAP PO PRN (09:30)
[2016-11-30] MEDS: PHENAZOPYRIDINE HCL 100 MG TAB PO SCH (09:30)
[2016-11-30] MEDS: FAMOTIDINE 20 MG TAB PO SCH (09:30)
[2016-11-30] MEDS: MILK OF MAGNESIA 30ML SUSP PO SCH (09:30)
[2016-11-30] MEDS: BICALUTAMIDE 50 MG TAB PO SCH (09:35)
[2016-11-30 17:22] VITALS: BP 113/64
== END 2016-11-30 18:45 | disposition home or self-care (01) | DRG 500 ==
LOC: ER 10:44 → TELE 10:45 → CENTRAL 19:20
PROVIDERS: ADMIT Internal Medicine; ATTEND Internal Medicine
DX: C61 Malignant neoplasm of prostate (principal); N13.30 Unspecified hydronephrosis; N13.8 Other obstructive and reflux uropathy; R33.9 Retention of urine, unspecified; N39.0 Urinary tract infection, site not specified; K44.9 Diaphragmatic hernia without obstruction or gangrene; K59.00 Constipation, unspecified
CPT/HCPCS: 36415; 71010; 71260; 74176; 78306; 80053; 81002; 82150; 82550; 82962; 83690; 84154; 85007; 85025; 85027; 85652; 86141; 94761; 96365; 96375; J0696; J2405; J9217

== ENCOUNTER 2016-12-22 15:34 | Emergency (ER) | payer MEDICAID ==
[~2016-12-22] VITALS: Ht 172.7 cm; Wt 74.8 kg
[2016-12-22 15:55] VITALS: BP 123/72
== END 2016-12-22 17:35 | disposition home or self-care (01) ==
LOC: ER 15:37
DX: S61.412A Laceration without foreign body of left hand, initial encounter (principal); W26.8XXA Contact with other sharp object(s), not elsewhere classified, initial encounter; Y93.89 Activity, other specified; Y92.89 Other specified places as the place of occurrence of the external cause; Y99.2 Volunteer activity
CPT/HCPCS: 12002